=== PATIENT | male | born 1950 | race Caucasian/White ===

== ENCOUNTER 2018-01-21 09:46 | Day surgery (SDC) | payer MEDICARE, OTHER ==
[2018-01-17 10:35] VITALS: BMI 30.1
[~2018-01-21 09:46] MED LIST: LACTATED RINGERS 1,000 ML IV SCH; LIDOCAINE 1% 20 ML VIAL (10MG/ML) FOR IV START INTRADERMA PRN
[2018-01-21 10:08] VITALS: RESP 16; TEMP 98.8
[2018-01-21] MEDS ORDERED: PROPOFOL 10 MG/ML 20 ML VIAL IV ONE (10:27)
--- NOTE | 2018-01-21 10:32 | P.GSHP ---
History of Present Illness H&P Date: 01/21/18 Chief Complaint: Screening colonoscopy This a 67-year-old male who presents today for screening colonoscopy. His last colonoscopy over 10 years ago. He denies any significant GI complaints. Past Medical History Past Medical History: Hypertension, Sleep Apnea/CPAP/BIPAP Additional Past Medical History / Comment(s): MILD SLEEP APNEA, NO TX. MENTALLY INCOMPITANT. PATIENT LIVES ALONE, BUT LEGAL GUARDIAN "HAS BEEN TAKING CARE OF HIM FOR 30 YEARS, AND BEEN IS GUARDIAN SINCE 2008." History of Any Multi-Drug Resistant Organisms: None Reported Additional Past Surgical History / Comment(s): COLONOSCOPY Past Anesthesia/Blood Transfusion Reactions: No Reported Reaction Smoking Status: Never smoker - Past Family History Mother Family Medical History: Cancer Medications and Allergies Home Medications Medication Instructions Recorded Confirmed Type Vitamin D3 (Unknown Dose) 1 tab PO DAILY 01/17/18 01/21/18 History amLODIPine [Norvasc] 5 mg PO DAILY 01/17/18 01/21/18 History Allergies Allergy/AdvReac Type Severity Reaction Status Date / Time Penicillins Allergy Rash/Hives Verified 01/21/18 10:08 Surgical - Exam Vital Signs Temp Pulse Resp BP Pulse Ox 98.8 F 88 16 174/87 98 01/21/18 10:07 01/21/18 10:07 01/21/18 10:07 01/21/18 10:07 01/21/18 10:07 - General well developed, no distress - Eyes PERRL - ENT normal pinna - Neck no masses - Respiratory normal expansion - Cardiovascular Rhythm: regular - Abdomen Abdomen: soft, non tender Assessment and Plan Assessment: We will perform screening colonoscopy
--- NOTE | 2018-01-21 10:44 | P.OP ---
Date of Procedure: 01/21/18 Preoperative Diagnosis: Screening colonoscopy Postoperative Diagnosis: Normal colon Procedure(s) Performed: Colonoscopy Anesthesia: MAC Surgeon: Faheem Sood Pathology: none sent Condition: stable Disposition: PACU Description of Procedure: PROCEDURE: The patient was placed on the endoscopy table in the lateral position. Digital rectal examination was performed which revealed no abnormalities. The prostate was symmetrical without nodules. Flexible colonoscope was then placed in the patient's anus and passed throughout the entire colon. The ileocecal valve was visualized. The cecum, ascending, transverse, descending and sigmoid colon were normal. The rectum was normal as well. There were no masses, polyps or diverticula noted in the entire colon. SUMMARY OF FINDINGS: Normal colonoscopy.
[2018-01-21 11:03] VITALS: BP 129/83; PULSE 83
== END 2018-01-21 11:22 | disposition home or self-care (01) ==
LOC: ORWHC2ENDO 09:46
PROVIDERS: ATTEND Surgery
DX: Z12.11 Encounter for screening for malignant neoplasm of colon (principal); I10 Essential (primary) hypertension; G47.33 Obstructive sleep apnea (adult) (pediatric); Z99.89 Dependence on other enabling machines and devices; Z79.899 Other long term (current) drug therapy; Z88.0 Allergy status to penicillin
CPT/HCPCS: J2704; G0121; 45378

== ENCOUNTER → 2018-11-01 | Outpatient (CLI) | payer MEDICARE, OTHER ==
--- NOTE | 2018-11-01 12:21 | ECHOF ---
Referral Reason:I49.9 Arrthymia HTN I10 MEASUREMENTS -------- HEIGHT: 177.8 cm WEIGHT: 96.2 kg BP: RVIDd: 2.5 cm (< 3.3) IVSd: 0.9 cm (0.6 - 1.1) LVIDd: 5.0 cm (3.9 - 5.3) LVPWd: 0.9 cm (0.6 - 1.1) IVSs: 1.6 cm LVIDs: 3.0 cm LVPWs: 1.6 cm LA Diam: 3.0 cm (2.7 - 3.8) LAESV Index (A-L): 20.99 ml/m Ao Diam: 2.6 cm (2.0 - 3.7) AV Cusp: 1.9 cm (1.5 - 2.6) MV EXCURSION: 14.881 mm (> 18.000) MV EF SLOPE: 105 mm/s (70 - 150) EPSS: 0.3 cm MV E Jordy: 0.87 m/s MV DecT: 240 ms MV A Jordy: 1.01 m/s MV E/A Ratio: 0.86 RAP: 5.00 mmHg RVSP: 24.93 mmHg FINDINGS -------- Sinus rhythm. This was a technically adequate study. The left ventricular size is normal. Left ventricular wall thickness is normal. Overall left vent ricular systolic function is normal with, an EF between 60 - 65 %. The right ventricle is normal in size. Normal LA size by volume 22+/-6 ml/m2. The right atrium is normal in size. Interatrial and interventricular septum intact. The aortic valve is trileaflet and appears structurally normal. Mild mitral annular calcification present. Mild tricuspid regurgitation present. Right ventricular systolic pressure is normal at < 35 mmHg. Trace/mild (physiologic) pulmonic regurgitation. The aortic root size is normal. IVC Not well visulized. There is no pericardial effusion. CONCLUSIONS -------- 1. Sinus rhythm. 2. This was a technically adequate study. 3. The left ventricular size is normal. 4. Left ventricular wall thickness is normal. 5. Overall left ventricular systolic function is normal with, an EF between 60 - 65 %. 6. The right ventricle is normal in size. 7. Normal LA size by volume 22+/-6 ml/m2. 8. The right atrium is normal in size. 9. Interatrial and interventricular septum intact. 10. The aortic valve is trileaflet and appears structurally normal. 11. Mild mitral annular calcification present. 12. Mild tricuspid regurgitation present. 13. Right ventricular systolic pressure is normal at < 35 mmHg. 14. Trace/mild (physiologic) pulmonic regurgitation. 15. The aortic root size is normal. 16. IVC Not well visulized. 17. There is no pericardial effusion. AUXILIARY POWERPLANT OPERATOR: Gillian Goetz RDCS
--- NOTE | 2018-11-01 13:36 | EST ---
EXERCISE STRESS DATE OF SERVICE: 11/01/2018 AGE: 68 SEX: Male HT: 70" WT: 212 pounds PROTOCOL: Justin STAGE: I DURATION OF EXERCISE: 4 minutes 11 seconds HEART RATE REST: 81 BLOOD PRESSURE REST: 155/88 MAXIMUM HEART RATE ACHIEVED: 130 MAXIMUM BLOOD PRESSURE: 186/91 85% MPHR: 130 100% MPHR: 153 METS: 4.7 INDICATIONS: Hypertension. CLINICAL INFORMATION: Baseline EKG revealed normal sinus rhythm without significant ST-T changes. Patient walked on standard Justin protocol for 4 minutes 11 seconds achieved a maximal heart rate of 130 beats per minute which is 85% of maximal. He developed fatigue and shortness of breath and therefore stress test was stopped. EKG did not reveal any ST- segment changes to indicate ischemia. By EKG criteria, this is a negative stress test with limited exercise capacity. YAZMINL / IJN: [id number] /
== END | disposition home or self-care (01) ==
LOC: RADNMMAIN 09:40
PROVIDERS: ATTEND Family Medicine
DX: I08.1 Rheumatic disorders of both mitral and tricuspid valves (principal); I10 Essential (primary) hypertension; Z88.0 Allergy status to penicillin
CPT/HCPCS: 93017; 93306

== ENCOUNTER → 2018-11-01 | Outpatient (CLI) | payer MEDICARE, OTHER ==
--- NOTE | 2018-11-01 09:55 | US ---
EXAMINATION TYPE: US carotid duplex BILAT DATE OF EXAM: 11/01/2018 COMPARISON: NONE CLINICAL HISTORY: R10.84 Generalized abd pain; R09.89 Carotid bruit. Bruit EXAM MEASUREMENTS: RIGHT: Peak Systolic Velocity (PSV) cm/sec ----- Right CCA: 88.6 ----- Right ICA: 81.3 ----- Right ECA: 129.1 ICA/CCA ratio: 0.9 RIGHT: End Diastole cm/sec ----- Right CCA: 18.8 ----- Right ICA: 15.9 ----- Right ECA: 17.6 LEFT: Peak Systolic Velocity (PSV) cm/sec ----- Left CCA: 100.0 ----- Left ICA: 106.4 ----- Left ECA: 112.9 ICA/CCA ratio: 1.1 LEFT: End Diastole cm/sec ----- Left CCA: 20.8 ----- Left ICA: 19.2 ----- Left ECA: 17.6 VERTEBRALS (direction of flow): Right Vertebral: Antegrade Left Vertebral: Antegrade Rhythm: Normal No significant stenosis seen IMPRESSION: Mild degree of grayscale atheromatous plaquing with no sonographically evident hemodynam ically significant stenosis within either visualized carotid arterial system. Criteria for Assigning % of Stenosis / Diameter reduction (Estimation based on the indirect measurements of the internal carotid artery velocities (ICA PSV). 1. Normal (no stenosis)=ICA PSV < 125 cm/s: ratio < 2.0: ICA EDV<40 cm/s. 2. Less than 50% stenosis=ICA PSV < 125 cm/s: ratio < 2.0: ICA EDV<40 cm/s. 3. 50 to 69% stenosis=ICA PSV of 125 to 230 cm/s: ration 2.0 ? 4.0: ICA EDV 40-100 cm/s. 4. Greater than 70% stenosis to near occlusion= ICA PSV > 230 cm/s: ratio > 4.0: ICA EDV > 100 cm/s. 5. Near occlusion= ICA PSV velocities may be low or undetectable: variable ratio and ICA EDV. 6. Total occlusion=unable to detect flow.
--- NOTE | 2018-11-01 10:11 | US ---
EXAMINATION TYPE: US abdomen complete DATE OF EXAM: 11/01/2018 COMPARISON: NONE CLINICAL HISTORY: R10.84 Generalized abd pain; R09.89 Carotid bruit. Pain. EXAM MEASUREMENTS: Liver Length: 16 cm Gallbladder Wall: 0.3 cm CBD: 0.3 cm Spleen: 10.9 cm Right Kidney: 10.6 x 5.0 x 4.3 cm Left Kidney: 11.9 x 4.8 x 4.3 cm Exam limitations due to body habitus. Pancreas: Obscured by bowel gas Liver: Appears wnl some limitations due to rib shadowing. There is increased echogenicity of the he patic parenchyma with diminished visualization of the portal triads most commonly relating to hepatic steatosis and limiting evaluation for underlying hepatic masses. Gallbladder: wnl Evidence for sonographic Ramirez's sign: No CBD: wnl Spleen: wnl Right Kidney: wnl Left Kidney: Cystic area medial 2.2 x 2.5 x 2.8 cm. Upper IVC: wnl Abd Aorta: Limited due to bowel gas mid and distal wnl. The intrahepatic portion of the IVC and proximal abdominal aorta are within normal limits. There is no evidence of cholelithiasis. Common bile duct is unremarkable. Pancreas is obscured. The spleen i s unremarkable. Kidneys are symmetric and free of hydronephrosis. IMPRESSION: 1. Sonographic findings most commonly related to hepatic steatosis. Correlate with liver function amanda ts. 2. Simple appearing left renal cyst measuring 2.8 cm in greatest dimension. 3. No sonographic evidence of cholelithiasis nor acute cholecystitis. 4. Obscuration of the pancreas by overlying bowel gas.
== END | disposition home or self-care (01) ==
LOC: RADUSWWP 08:52
PROVIDERS: ATTEND Family Medicine
DX: N28.1 Cyst of kidney, acquired (principal); I65.23 Occlusion and stenosis of bilateral carotid arteries; Z88.0 Allergy status to penicillin
CPT/HCPCS: 76700; 93880

== ENCOUNTER → 2021-06-10 | Outpatient (CLI) | payer MEDICARE, OTHER | END | disposition home or self-care (01) | LOC: RADUSWWP 12:35 | PROVIDERS: ATTEND Family Medicine | DX: Z53.9 Procedure and treatment not carried out, unspecified reason (principal) ==

== ENCOUNTER → 2021-08-05 | Outpatient (CLI) | payer MEDICARE, OTHER ==
--- NOTE | 2021-08-09 06:48 | PE ---
EXAMINATION TYPE: PET CT fusion skull to thigh DATE OF EXAM: 08/05/2021 COMPARISON: CT abdomen and pelvis July 15, 2021 HISTORY: Unknown primary neoplasm. Abnormal CT scan study with suspected osseous metastatic disease. Elevated PSA. TECHNIQUE: Following the intravenous administration of 10.55 mCi of F-18 FDG, whole body images are performed from the skull base to the midthigh. Images are reviewed on the computer in the coronal, a xial, and sagittal planes. Reconstructed rotating images are created on independent workstation and reviewed on the computer. A localization and attenuation correction CT is performed in conjunction with the PET scan. Blood glucose level equals 103 SCAN: Initial Scan FINDINGS: SKULL BASE AND NECK: No areas of abnormal hypermetabolic uptake. CHEST, MEDIASTINUM, AND HILAR REGION: No areas of abnormal hypermetabolic uptake. ABDOMEN AND PELVIS: Normal excretion is seen. No areas of abnormal hypermetabolic uptake. Urine leak or contamination inferiorly is noted. OSSEOUS STRUCTURES: No areas of abnormal hypermetabolic uptake including small sclerotic foci through out the spine and pelvic structures. OTHER CT: Mild calcified plaque right carotid bulb level. Mild to moderate coronary artery calcificat ion. Cortical thinning in both kidneys. There is exophytic 3.8 cm simple appearing thin-walled cyst anteri codey from the left kidney. Enlarged prostate consistent with BPH. Small size right slightly larger th an left fat-containing bilateral inguinal hernias. IMPRESSION: No areas of abnormal hypermetabolic uptake to suggest malignancy including small scattere d sclerotic foci
== END | disposition home or self-care (01) ==
LOC: RADPETMAIN 13:42
PROVIDERS: ATTEND Family Medicine
DX: C41.9 Malignant neoplasm of bone and articular cartilage, unspecified (principal); R97.20 Elevated prostate specific antigen [PSA]
CPT/HCPCS: 78815; A9552

== ENCOUNTER 2023-10-19 19:57 | Emergency (ER) | payer MEDICARE, OTHER ==
[2023-10-19 20:04] VITALS: TEMP 97.9
--- NOTE | 2023-10-19 20:06 | ED ---
General Adult HPI - General Stated complaint: Dark, tarry stool Time Seen by Provider: 10/19/23 20:00 Source: patient, EMS Mode of arrival: EMS Limitations: no limitations - History of Present Illness Initial comments: Dictation was produced using [employer] dictation software. please excuse any grammatical, word or spelling errors. Chief Complaint: 73-year-old male presents to the ER for black tarry stools History of Present Illness: 73-year-old male presents the emergency department multiple days of black tarry stools. Today he started to have some hematemesis. Patient guardian called EMS patient brought to the ER. Patient complains of some epigastric pain. Patient denies any alcohol dependence. Denies any fever, chills or night sweats. The ROS documented in this emergency department record has been reviewed and confirmed by me. Those systems with pertinent positive or negative responses have been documented in the HPI. All other systems are other negative and/or noncontributory. - Related Data Home Medications Medication Instructions Recorded Confirmed Losartan/Hydrochlorothiazide 1 tab PO DAILY 10/19/23 10/19/23 [Hyzaar 100-12.5 Tablet] Tamsulosin [Flomax] 0.4 mg PO BID 10/19/23 10/19/23 amLODIPine [Norvasc] 10 mg PO DAILY 10/19/23 10/19/23 Allergies Allergy/AdvReac Type Severity Reaction Status Date / Time Penicillins Allergy Rash/Hives Verified 10/19/23 20:14 Review of Systems ROS Statement: Those systems with pertinent positive or pertinent negative responses have been documented in the HPI. ROS Other: All systems not noted in ROS Statement are negative. Past Medical History Past Medical History: Hypertension, Sleep Apnea/CPAP/BIPAP Additional Past Medical History / Comment(s): MILD SLEEP APNEA, NO TX. MENTALLY INCOMPITANT. PATIENT LIVES ALONE, BUT LEGAL GUARDIAN "HAS BEEN TAKING CARE OF HIM FOR 30 YEARS, AND BEEN IS GUARDIAN SINCE 2008." History of Any Multi-Drug Resistant Organisms: None Reported Additional Past Surgical History / Comment(s): COLONOSCOPY Past Anesthesia/Blood Transfusion Reactions: No Reported Reaction Past Psychological History: Schizophrenia Past Alcohol Use History: None Reported Past Drug Use History: None Reported - Past Family History Mother Family Medical History: Cancer General Exam - General Exam Comments Initial Comments: PHYSICAL EXAM: General Impression: Alert and oriented x3, not in acute distress HEENT: Normocephalic atraumatic, extra-ocular movements intact, pupils equal and reactive to light bilaterally, mucous membranes moist. Cardiovascular: Heart regular rate and rhythm Chest: Able to complete full sentences, no retractions, no tachypnea Abdomen: abdomen soft, epigastric palpatory tenderness, non-distended, no organomegaly Musculoskeletal: Pulses present and equal in all extremities, no peripheral edema Motor: no focal deficits noted Neurological: CN II-XII grossly intact, no focal motor or sensory deficits noted Skin: Intact with no visualized rashes Psych: Normal affect and mood Rectal exam: Gross dark stool Limitations: no limitations Course Vital Signs 10/19/23 10/19/23 10/19/23 19:58 21:00 22:00 Temperature 97.9 F Pulse Rate 65 80 81 Respiratory 18 19 19 Rate Blood Pressure 105/63 119/55 114/68 O2 Sat by Pulse 99 100 97 Oximetry EKG Findings - EKG Comments: EKG Findings:: My EKG interpretation: Ventricular rate 87, sinus rhythm,. 154, cures 89, QTc 391. No OH prolongation, no QTC prolongation, no ST or T-wave changes noted. Overall, this EKG is unremarkable Medical Decision Making - Medical Decision Making Was pt. sent in by a medical professional or institution (, PA, PRODUCT MANAGER, urgent care, hospital, or half-way...) When possible be specific @ -[No] Did you speak to anyone other than the patient for history (EMS, parent, family, police, friend...)? What history was obtained from this source @ -EMS provided history as described above. Some history obtained from legal guardian at the bedside Did you review nursing and triage notes (agree or disagree)? Why? @ -[I reviewed and agree with nursing and triage notes] Were old charts reviewed (outside hosp., previous admission, EMS record, old EKG, old radiological studies, urgent care reports/EKG's, half-way records)? Report findings @ -[No old charts were reviewed] Differential Diagnosis (chest pain, altered mental status, abdominal pain women, abdominal pain men, vaginal bleeding, musculoskeletal, weakness, fever, dyspnea, syncope, headache, dizziness, GI bleed, back pain, seizure, CVA, palpatations, mental health)? @ -Differential Abdominal Pain Men: Appendicitis, cholecystitis, diverticulosis, ischemic bowel, pancreatitis, hepatitis, UTI, gastroenteritis, AAA, incarcerated hernia, bowel obstruction, constipation, inflammatory bowel, hepatitis, peptic ulcer disease, splenic infarction, perforated viscus, testicular torsion, this is not meant to be an all-inclusive list EKG interpreted by me (3pts min.). @ -See above X-rays interpreted by me (1pt min.). @ -[None done] CT interpreted by me (1pt min.). @ -[None done] U/S interpreted by me (1pt. min.). @ -[None done] What testing was considered but not performed or refused? (CT, X-rays, U/S, labs)? Why? @ -[None] What meds were considered but not given or refused? Why? @ -[None] Was smoking cessation discussed for >3mins.? @ -[No] Were there social determinants of health that impacted care today? How? (Homelessness, low income, unemployed, alcoholism, drug addiction, transportat ion, low edu. Level, literacy, decrease access to med. care, longterm, rehab)? @ -[No] Was there de-escalation of care discussed even if they declined (Discuss DNR or withdrawal of care, Hospice)? DNR status @ -[No] What co-morbidities impacted this encounter? (DM, HTN, Smoking, COPD, CAD, Cancer, CVA, ARF, Chemo, Hep., AIDS, mental health diagnosis, sleep apnea, morbid obesity)? @ -[None] Was patient admitted / discharged? Hospital course, mention meds given and route, prescriptions, significant lab abnormalities, going to OR and other pertinent info. @ -73-year-old male with history of mental debility presents to the ER for GI bleed and epigastric abdominal pain. Vital signs upon arrival are within acceptable limits. Laboratory evaluation obtained. Leukocytosis of 16.6 unclear etiology. Hemoglobin is 12.8. Metabolic panel shows BUN of 231 with a creatinine of 11.53 patient allegedly does not have a history of kidney issues. Stool occult blood is positive. We do not have GI doctor here. Patient given Protonix and IV fluids will be transferred to [facility]. Accepting ph ysician is Dr. Paul Zhong, GI specialist at [facility] Did you discuss the management of the patient with other professionals (professionals i.e. , PA, PRODUCT MANAGER, lab, RT, psych nurse, social media intern, medical dosimetrist, teacher, chief environmental commitment officer, machine adjuster leader case trim)? Give summary @ -As above Was critical care preformed (if so, how long)? @ -[No] Undiagnosed new problem with uncertain prognosis? @ -[No] Drug Therapy requiring intensive monitoring for toxicity (Heparin, Nitro, Insulin, Cardizem)? @ -[No] Were any procedures done? @ -[No] Diagnosis/symptom? Acute, or Chronic, or Acute on Chronic? Uncomplicated (without systemic symptoms) or Complicated (systemic symptoms)? @ -GI bleed, JHOANA Side effects of treatment? @ -[No] Exacerbation, Progression, or Severe Exacerbation? @ -[No] Poses a threat to life or bodily function? How? (Chest pain, USA, MS, pneumonia, PE, COPD, DKA, ARF, appy, cholecystitis, CVA, Diverticulitis, Homicidal, Suicidal, threat to staff... and all critical care pts) @ -yes - Lab Data Result diagrams: 10/19/23 20:09 10/19/23 20:09 Lab Results 10/19/23 10/19/23 10/19/23 Range/Units 20:05 20:07 20:09 WBC 16.6 H (3.8-10.6) k/uL RBC 4.08 L (4.30-5.90) m/uL Hgb 12.8 L (13.0-17.5) gm/dL Hct 36.7 L (39.0-53.0) % MCV 90.0 (80.0-100.0) fL MCH 31.3 (25.0-35.0) pg MCHC 34.7 (31.0-37.0) g/dL RDW 12.8 (11.5-15.5) % Plt Count 124 L (150-450) k/uL MPV 11.6 Neutrophils % 87 % Lymphocytes % 3 % Monocytes % 8 % Eosinophils % 0 % Basophils % 0 % Neutrophils # 14.4 H (1.3-7.7) k/uL Lymphocytes # 0.5 L (1.0-4.8) k/uL Monocytes # 1.4 H (0-1.0) k/uL Eosinophils # 0.1 (0-0.7) k/uL Basophils # 0.1 (0-0.2) k/uL PT (10.0-12.5) sec INR (<1.2) APTT (22.0-30.0) sec Sodium (137-145) mmol/L Potassium (3.5-5.1) mmol/L Chloride (98-107) mmol/L Carbon Dioxide (22-30) mmol/L Anion Gap mmol/L BUN (9-20) mg/dL Creatinine (0.66-1.25) mg/dL Est GFR (CKD-EPI)AfAm (>60 ml/min/1.73 sqM) Est GFR (CKD-EPI)NonAf (>60 ml/min/1.73 sqM) Glucose (74-99) mg/dL Plasma Lactic Acid Tae (0.7-2.0) mmol/L Calcium (8.4-10.2) mg/dL Total Bilirubin (0.2-1.3) mg/dL AST (17-59) U/L ALT (4-49) U/L Alkaline Phosphatase (38-126) U/L Total Protein (6.3-8.2) g/dL Albumin (3.5-5.0) g/dL Stool Occult Blood Positive (Negative) Blood Type Blood Type Confirm A Positive Blood Type Recheck Bld Type Recheck Status Antibody Screen Spec Expiration Date 10/19/23 10/19/23 10/19/23 Range/Units 20:09 20:09 20:09 WBC (3.8-10.6) k/uL RBC (4.30-5.90) m/uL Hgb (13.0-17.5) gm/dL Hct (39.0-53.0) % MCV (80.0-100.0) fL MCH (25.0-35.0) pg MCHC (31.0-37.0) g/dL RDW (11.5-15.5) % Plt Count (150-450) k/uL MPV Neutrophils % % Lymphocytes % % Monocytes % % Eosinophils % % Basophils % % Neutrophils # (1.3-7.7) k/uL Lymphocytes # (1.0-4.8) k/uL Monocytes # (0-1.0) k/uL Eosinophils # (0-0.7) k/uL Basophils # (0-0.2) k/uL PT 11.4 (10.0-12.5) sec INR 1.0 (<1.2) APTT 22.0 (22.0-30.0) sec Sodium 128 L (137-145) mmol/L Potassium 3.7 (3.5-5.1) mmol/L Chloride 98 (98-107) mmol/L Carbon Dioxide 10 L (22-30) mmol/L Anion Gap 20 mmol/L BUN 231 H* (9-20) mg/dL Creatinine 11.53 H* (0.66-1.25) mg/dL Est GFR (CKD-EPI)AfAm 5 (>60 ml/min/1.73 sqM) Est GFR (CKD-EPI)NonAf 4 (>60 ml/min/1.73 sqM) Glucose 130 H (74-99) mg/dL Plasma Lactic Acid Tae 1.0 (0.7-2.0) mmol/L Calcium 8.3 L (8.4-10.2) mg/dL Total Bilirubin 0.8 (0.2-1.3) mg/dL AST 21 (17-59) U/L ALT 13 (4-49) U/L Alkaline Phosphatase 71 (38-126) U/L Total Protein 5.3 L (6.3-8.2) g/dL Albumin 3.1 L (3.5-5.0) g/dL Stool Occult Blood (Negative) Blood Type Blood Type Confirm Blood Type Recheck Bld Type Recheck Status Antibody Screen Spec Expiration Date 10/19/23 Range/Units 20:09 WBC (3.8-10.6) k/uL RBC (4.30-5.90) m/uL Hgb (13.0-17.5) gm/dL Hct (39.0-53.0) % MCV (80.0-100.0) fL MCH (25.0-35.0) pg MCHC (31.0-37.0) g/dL RDW (11.5-15.5) % Plt Count (150-450) k/uL MPV Neutrophils % % Lymphocytes % % Monocytes % % Eosinophils % % Basophils % % Neutrophils # (1.3-7.7) k/uL Lymphocytes # (1.0-4.8) k/uL Monocytes # (0-1.0) k/uL Eosinophils # (0-0.7) k/uL Basophils # (0-0.2) k/uL PT (10.0-12.5) sec INR (<1.2) APTT (22.0-30.0) sec Sodium (137-145) mmol/L Potassium (3.5-5.1) mmol/L Chloride (98-107) mmol/L Carbon Dioxide (22-30) mmol/L Anion Gap mmol/L BUN (9-20) mg/dL Creatinine (0.66-1.25) mg/dL Est GFR (CKD-EPI)AfAm (>60 ml/min/1.73 sqM) Est GFR (CKD-EPI)NonAf (>60 ml/min/1.73 sqM) Glucose (74-99) mg/dL Plasma Lactic Acid Tae (0.7-2.0) mmol/L Calcium (8.4-10.2) mg/dL Total Bilirubin (0.2-1.3) mg/dL AST (17-59) U/L ALT (4-49) U/L Alkaline Phosphatase (38-126) U/L Total Protein (6.3-8.2) g/dL Albumin (3.5-5.0) g/dL Stool Occult Blood (Negative) Blood Type A Positive Blood Type Confirm Blood Type Recheck No Previous Record Bld Type Recheck Status CABO Indicated Antibody Screen NEGATIVE Spec Expiration Date 10/22/20232308 Disposition Clinical Impression: GI bleed Disposition: OTHER INSTITUTION NOT DEFINED Condition: Serious Referrals: Edd Soto MD [Primary Care Provider] - 1-2 days Time of Disposition: 22:07 - Out of Hospital Transfer - Req. Specs Out of Hospital Transfer - Requested Specifics: Other Emergency Center ([facility]
[2023-10-19] MEDS: SODIUM CHLORIDE 0.9% 1,000 ML IV STA ×2 (20:16→21:48)
[2023-10-19] MEDS: PANTOPRAZOLE 40 MG/10 ML VIAL IVP ONE (20:18)
[2023-10-19 20:29] LABS: Basophils # (A) 0.1 k/uL (0-0.2); Basophils % (A) 0 %; Eosinophils # (A) 0.1 k/uL (0-0.7); Eosinophils % (A) 0 %; HCT 36.7 % (39.0-53.0); HGB 12.8 gm/dL (13.0-17.5); Lymphocytes # (A) 0.5 k/uL (1.0-4.8); Lymphocytes % (A) 3 %; MCH 31.3 pg (25.0-35.0); MCHC 34.7 g/dL (31.0-37.0); Mean Platelet Volume 11.6; Monocytes # (A) 1.4 k/uL (0-1.0); Monocytes % (A) 8 %; Neutrophils # (A) 14.4 k/uL (1.3-7.7); Neutrophils % (A) 87 %; Platelet Count 124 k/uL (150-450); RBC 4.08 m/uL (4.30-5.90); RDW 12.8 % (11.5-15.5); WBC 16.6 k/uL (3.8-10.6)
[2023-10-19 20:45] LABS: Prothrombin Time 11.4 sec (10.0-12.5)
[2023-10-19 21:20] LABS: ALT 13 U/L (4-49); AST 21 U/L (17-59); African American GFR (CKD) 5 (>60 ml/min/1.73 sqM); Albumin 3.1 g/dL (3.5-5.0); Alkaline Phosphatase 71 U/L (38-126); Anion Gap 20 mmol/L; Calcium 8.3 mg/dL (8.4-10.2); Carbon Dioxide 10 mmol/L (22-30); Chloride 98 mmol/L (98-107); Glucose 130 mg/dL (74-99); Non-African American GFR(CKD) 4 (>60 ml/min/1.73 sqM); Potassium 3.7 mmol/L (3.5-5.1); Sodium 128 mmol/L (137-145); Total Bilirubin 0.8 mg/dL (0.2-1.3); Total Protein 5.3 g/dL (6.3-8.2)
[2023-10-19 21:32] LABS: Blood Urea Nitrogen 231 mg/dL (9-20)
[2023-10-19 23:27] VITALS: BP 135/61; PULSE 85; RESP 18
== END 2023-10-19 23:31 | disposition other institution (70) ==
LOC: EC 19:57
DX: K92.2 Gastrointestinal hemorrhage, unspecified (principal); N17.9 Acute kidney failure, unspecified; Z88.0 Allergy status to penicillin
CPT/HCPCS: 36415; 93005; 86900; 86901; 80053; 83605; 85025; 85610; 85730; 86850; 82272; 99285; 96374; 96361 ×3; J2470